=== PATIENT | male | born 2000 | race Caucasian/White ===

== ENCOUNTER 2018-08-04 19:05 | Emergency (ER) | payer OTHER ==
[~2018-08-04] VITALS: Ht 172.7 cm; Wt 82.2 kg
[2018-08-04 19:18] VITALS: BP 133/86; Ht 172.7 cm; Wt 82.2 kg
== END 2018-08-04 22:15 | disposition home or self-care (01) ==
LOC: ED 19:05
DX: J06.9 Acute upper respiratory infection, unspecified (principal); J45.909 Unspecified asthma, uncomplicated
CPT/HCPCS: 87804